=== PATIENT | male | born 1975 | race Caucasian/White ===

== ENCOUNTER → 2017-09-21 | Outpatient (CLI) | payer OTHER ==
[~2017-09-21] MED LIST: CELEBREX 200 M200 M1 PO; NORCO 5-325 TA1 EACH PO
== END ==
LOC: M.CT 08:01
DX: Z13.6 Encounter for screening for cardiovascular disorders (principal)

== ENCOUNTER → 2018-12-12 | Outpatient (CLI) | payer OTHER | LOC: M.LAB 04:49 → EDSTATUS 17:06 → M.LAB 17:11 | DX: E87.6 Hypokalemia (principal) ==